=== PATIENT | female | born 1970 | race Caucasian/White ===

== ENCOUNTER 2017-09-21 19:07 | Emergency (ER) | payer MEDICAID ==
[2017-09-21] MEDS ORDERED: Lidocaine 1% with EPINEPHrine 1:100,000 20 ML MDV ONE (19:36)
[2017-09-21] MEDS ORDERED: Lidocaine 1% with EPINEPHrine 1:100,000 20 ML MDV INJECT ONE (19:46)
--- NOTE | 2017-09-21 20:03 | EDM.PDOC ---
ED HPI GENERAL MEDICAL PROBLEM - General Chief Complaint: General Stated Complaint: incision open Time Seen by Provider: 09/21/17 19:35 Source of Information: Reports: Patient History Limitations: Reports: No Limitations - History of Present Illness INITIAL COMMENTS - FREE TEXT/NARRATIVE: Patient presents with concerns of her abdominal incision that "popped open and it now bleeding". Patient had a laparoscope yesterday to remove her ovaries and her tubes. Was taking a shower this evening and drying off when felt the popping sensation. Did have a friend who is a nurse observe the open wound and did try steri strips but they wouldn't stick. She is having mild discomfort but not necessarily more than her post-surgical pain. Onset: Today, Sudden Duration: Hour(s): Location: Reports: Abdomen Quality: Reports: Dull Severity: Mild Associated Symptoms: Reports: No Other Symptoms Lower Back Pain Score (Numeric/FACES): 2 - Related Data Allergies Allergy/AdvReac Type Severity Reaction Status Date / Time morphine Allergy Hives Verified 09/21/17 19:13 Sulfa (Sulfonamide Allergy Hives Verified 09/21/17 19:13 Antibiotics) Home Meds: Home Meds ALPRAZolam [Alprazolam] 0.25 mg PO BEDTIME 09/21/17 [History] Acetaminophen/HYDROcodone [[place] 325-5 MG] 1 tab PO Q4H PRN 09/21/17 [History] Estradiol [Estradiol] 1 tab PO DAILY 09/21/17 [History] Venlafaxine HCl [Venlafaxine ER] 150 mg PO BEDTIME 09/21/17 [History] Past Medical History Gastrointestinal History: Reports: GERD, Irritable Bowel Syndrome, PUD, Other ( See Below) Other Gastrointestinal History: liver reflux Genitourinary History: Reports: None 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: Musculoskeletal History: Reports: Fracture, Neck Pain, Chronic Neurological History: Reports: Migraines Psychiatric History: Reports: Anxiety, Depression Hematologic History: Reports: Anemia Dermatologic History: Reports: Psoriasis - Past Surgical History GI Surgical History: Reports: Cholecystectomy, Colonoscopy, EGD Female Surgical History: Reports: Hysterectomy Neurological Surgical History: Reports: None Musculoskeletal Surgical History: Reports: ORIF Social & Family History - Family History Family Medical History: Noncontributory - Tobacco Use Smoking Status *Q: Former Smoker Used Tobacco, but Quit: Yes Month Tobacco Last Used: 13 yrs - Recreational Drug Use Recreational Drug Use: No ED ROS GENERAL - Review of Systems Review Of Systems: See Below Constitutional: Denies: Fever, Chills, Malaise, Decreased Appetite HEENT: Reports: No Symptoms Respiratory: Reports: No Symptoms Cardiovascular: Reports: No Symptoms Endocrine: Reports: No Symptoms GI/Abdominal: Reports: Abdominal Pain : Reports: No Symptoms Musculoskeletal: Reports: No Symptoms Skin: Reports: Other ( ) ED EXAM, GENERAL - Physical Exam Exam: See Below Exam Limited By: No Limitations General Appearance: Alert, WD/WN, No Apparent Distress GI/Abdominal: Normal Bowel Sounds, Soft, Tender Neurological: Alert, Oriented Skin Exam: Warm, Dry, Other (umbilical incision is now gaping open, approximately 2 cm by 1.5 cm open. Did opt to close wound for better healing with one suture. See procedure.) ED GENERAL MEDICAL PROCEDURES - Laceration/Wound Repair Abdomen Lac/wound length in cm: 2 Appearance: Linear Anesthetic Type: Local Local Anesthesia - Lidocaine (Xylocaine): 1% with EPI Local Anesthetic Volume: 2cc Skin Prep: Providone-Iodine (Betadine) Exploration/Debridement/Repair: Wound Explored (incision explored, tissue exposed but clean.) Closed with: Sutures (approximate the edges with one suture) # of Sutures: 1 Complications: No Course - Vital Signs Last Recorded V/S: Last Vital Signs Temp 98.1 F 09/21/17 19:10 Pulse 87 09/21/17 19:10 Resp 16 09/21/17 19:10 BP 120/81 09/21/17 19:10 Pulse Ox 96 09/21/17 19:10 - Orders/Labs/Meds Meds: Medications Discontinued Medications Generic Name Dose Route Start Last Admin Trade Name Chidi PRN Reason Stop Dose Admin Lidocaine/Epinephrine 20 ml 09/21/17 19:46 09/21/17 19:46 Xylocaine 1% With Epinephrine 1:100,000 INJECT 09/21/17 19:47 20 ml ONETIME ONE Administration Lidocaine/Epinephrine Confirm 09/21/17 19:36 09/21/17 19:56 Xylocaine 1% With Epinephrine 1:100,000 Administered 09/21/17 19:37 Not Given Dose 20 ml .ROUTE .STK-MED ONE Departure - Departure Time of Disposition: 20:00 Disposition: Home, Self-Care 01 Condition: Good Clinical Impression: Wound dehiscence - Discharge Information Referrals: Tamanna Iniguez PA [Emergency Provider] - Forms: ED Department Discharge Additional Instructions: 1. Keep wound clean and dry 2. Change bandage as needed 3. Have suture removed at SANITATION SUPERVISOR visit 4. Contact us with any questions
== END 2017-09-21 20:04 | disposition home or self-care (01) ==
LOC: CC.ED 19:07
DX: T81.31XA Disruption of external operation (surgical) wound, not elsewhere classified, initial encounter (principal); Z88.5 Allergy status to narcotic agent; Z88.2 Allergy status to sulfonamides; Z87.891 Personal history of nicotine dependence
CPT/HCPCS: 12001; 96372; 99282

== ENCOUNTER 2019-07-15 20:41 | Emergency (ER) | payer BC ==
[2019-07-15] MEDS ORDERED: Sodium Chloride 0.9% 1,000 ML IV ONE (21:02)
--- NOTE | 2019-07-15 21:03 | EDM.PDOC ---
ED HPI GENERAL MEDICAL PROBLEM - General Chief Complaint: General Stated Complaint: sweating,weakness Time Seen by Provider: 07/15/19 20:55 Source of Information: Reports: Patient History Limitations: Reports: No Limitations - History of Present Illness INITIAL COMMENTS - FREE TEXT/NARRATIVE: This patient is a 49 year old female that presents to the ER. 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 She reports towards the end of the evening, she took a bite of whip from a bowl. She reports shortly after doing that she felt lightheaded, diaphoretic, hot flushed, lower abdominal cramping like she had to have a BM. She reports that The patient reports that she has been getting migraines frequently, has chronic history of migraines. The patient denies n, v, d, f, chest pain, shortness of breath, urinary changes, unilateral weaknesses. Onset: Today Onset Date: 07/15/19 Onset Time: 20:00 Duration: Hour(s): (1) Location: Reports: Abdomen Quality: Reports: Other (cramping) Severity: Moderate Improves with: Reports: None Worsens with: Reports: None Associated Symptoms: Reports: Diaphoresis, Headaches. Denies: Confusion, Chest Pain, Cough, cough w sputum, Fever/Chills, Loss of Appetite, Malaise, Nausea/ Vomiting, Rash, Seizure, Shortness of Breath, Syncope, Weakness Lower Abdominal Pain Score (Numeric/FACES): 8 - Related Data Allergies Allergy/AdvReac Type Severity Reaction Status Date / Time morphine Allergy Hives Verified 07/15/19 20:43 Sulfa (Sulfonamide Allergy Hives Verified 07/15/19 20:43 Antibiotics) Home Meds: Home Meds 5Hydroxytryptophan(Oxitriptan) [5-Htp] 200 mg PO DAILY 07/15/19 [History] Estradiol 0.025 mg TOP DAILY 07/15/19 [History] Fluocinonide 1 applic TOP DAILY 07/15/19 [History] Multivit-Min/Iron/Folic/Zaw548 [Hair, Skin and Nails Tablet] 1 tab PO DAILY [History] Past Medical History Gastrointestinal History: Reports: GERD, Irritable Bowel Syndrome, PUD, Other ( See Below) Other Gastrointestinal History: liver reflux Genitourinary History: Reports: 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: Musculoskeletal History: Reports: Fracture, Neck Pain, Chronic Neurological History: Reports: Migraines Psychiatric History: Reports: Anxiety, Depression Hematologic History: Reports: Anemia Dermatologic History: Reports: Psoriasis - Past Surgical History GI Surgical History: Reports: Cholecystectomy, Colonoscopy, EGD Female Surgical History: Reports: Hysterectomy Neurological Surgical History: Reports: None Musculoskeletal Surgical History: Reports: ORIF Social & Family History - Family History Family Medical History: Noncontributory ED ROS GENERAL - Review of Systems Review Of Systems: See Below Constitutional: Reports: Diaphoresis. Denies: Fever HEENT: Reports: No Symptoms Respiratory: Reports: No Symptoms. Denies: Shortness of Breath Cardiovascular: Reports: Lightheadedness. Denies: Chest Pain, Blood Pressure Problem, Claudication, Dyspnea on Exertion, Edema, Orthopnea, Palpitations, Syncope Endocrine: Reports: No Symptoms GI/Abdominal: Reports: Abdominal Pain. Denies: Diarrhea, Nausea, Vomiting : Reports: No Symptoms Musculoskeletal: Reports: No Symptoms Skin: Reports: No Symptoms Neurological: Reports: Headache. Denies: Seizure, Syncope Psychiatric: Reports: No Symptoms Hematologic/Lymphatic: Reports: No Symptoms Immunologic: Reports: No Symptoms ED EXAM, GENERAL - Physical Exam Exam: See Below Exam Limited By: No Limitations General Appearance: Alert, WD/WN, No Apparent Distress, Anxious Eye Exam: Bilateral Eye: Normal Inspection, PERRL Ears: Normal External Exam, Normal Canal, Hearing Grossly Normal, Normal TMs Ear Exam: Bilateral Ear: Auricle Normal, Canal Normal, TM normal Nose: Normal Inspection, Normal Mucosa, No Blood Throat/Mouth: Normal Inspection, Normal Lips, Normal Teeth, Normal Gums, Normal Oropharynx, Normal Voice, No Airway Compromise Head: Atraumatic, Normocephalic Neck: Normal Inspection, Supple, Non-Tender, Full Range of Motion Respiratory/Chest: No Respiratory Distress, Lungs Clear, Normal Breath Sounds, No Accessory Muscle Use Cardiovascular: Normal Peripheral Pulses, Regular Rate, Rhythm, No Edema, No Gallop, No JVD, No Murmur, No Rub Peripheral Pulses: 2+: Carotid (L), Carotid (R), Radial (L), Radial (R), Posterior Tibial (L), Posterior Tibial (R) GI/Abdominal: Normal Bowel Sounds, Soft, No Organomegaly, No Distention, No Abnormal Bruit, No Mass, Pelvis Stable, Tender (mild RLQ, LLQ.). No: Distended , Guarding, Rigid, Rebound (Female) Exam: Deferred Rectal (Female) Exam: Deferred Back Exam: Normal Inspection, Full Range of Motion. No: CVA Tenderness (L), CVA Tenderness (R) Extremities: Normal Inspection, Normal Range of Motion, Non-Tender, No Pedal Edema, Normal Capillary Refill Neurological: Alert, Oriented, CN II-XII Intact, Normal Cognition, Normal Gait, No Motor/Sensory Deficits Psychiatric: Normal Affect, Normal Mood Skin Exam: Warm, Dry, Intact, Normal Color, No Rash Lymphatic: No Adenopathy EKG INTERPRETATION EKG Date: 07/15/19 Time: 21:32 Rhythm: NSR Rate (Beats/Min): 79 QRS: Normal ST-T: Other (nonspecific. no elevation) QT: Normal Comparison: NA - No Prior EKG Course - Vital Signs Last Recorded V/S: Last Vital Signs Temp 96.8 F 07/15/19 20:43 Pulse 96 07/15/19 20:43 Resp 18 07/15/19 20:43 BP 132/73 07/15/19 20:43 Pulse Ox 100 07/15/19 20:43 - Orders/Labs/Meds Orders: Active Orders 24 hr Category Date Time Status EKG Documentation Completion [RC] STAT Care 07/15/19 21:02 Inactive Abdomen Pelvis w Cont [CT] Stat Exams 07/15/19 21:50 Taken Labs: Laboratory Tests 07/15/19 07/15/19 07/15/19 Range/Units 21:25 21:25 21:52 WBC 11.6 H (5.0-10.0) 10^3/uL RBC 4.06 (4.00-5.50) 10^6/uL Hgb 11.9 L (12.0-16.0) g/dL Hct 36.4 L (37.0-47.0) % MCV 89.7 (82.0-94.0) fL MCH 29.3 (27.0-32.0) pg MCHC 32.7 L (33.0-38.0) g/dL RDW Coeff of Rayna 13.2 (11.0-15.0) % Plt Count 437 H (150-400) 10^3/uL Neut % (Auto) 59.0 (35-85) % Lymph % (Auto) 29.6 (10-55) % Isabella % (Auto) 9.7 (0-16) % Eos % (Auto) 0.8 (0-5) % Baso % (Auto) 0.9 (0-3) % Neut # (Auto) 6.87 (1.80-7.00) 10^3/uL Lymph # (Auto) 3.45 (1.00-4.80) 10^3/uL Isabella # (Auto) 1.13 H (0.00-0.80) 10^3/uL Eos # (Auto) 0.09 (0.00-0.45) 10^3/uL Baso # (Auto) 0.10 10^3/uL Sodium 143 (136-145) mEq/L Potassium 4.4 (3.5-5.0) mEq/L Chloride 105 (98-106) mEq/L Carbon Dioxide 31 (21-32) mmol/L BUN 14 (7-18) mg/dL Creatinine 1.2 H (0.6-1.0) mg/dL Est Cr Clr Drug Dosing 45.88 mL/min Estimated GFR (MDRD) 47 L (>=60) mL/min Glucose 107 H (75-99) mg/dL Calcium 9.6 (8.4-10.1) mg/dL Total Bilirubin 0.5 (0.0-1.0) mg/dL AST 22 (15-37) U/L ALT 27 (12-78) U/L Alkaline Phosphatase 87 (46-116) U/L Lactate Dehydrogenase 190 (100-190) U/L Creatine Kinase 135 (21-215) U/L Troponin I < 0.017 (0.00-0.06) ng/mL Total Protein 7.3 (6.4-8.2) g/dL Albumin 3.9 (3.4-5.0) g/dL Urine Color Yellow (YELLOW) Urine Appearance Clear (CLEAR) Urine pH 8.5 H (4.5-8.0) Ur Specific [place] 1.020 (1.003-1.020) Urine Protein 30 H (NEGATIVE) mg/dL Urine Glucose (UA) Negative (NEGATIVE) mg/dL Urine Ketones 15 H (NEGATIVE) mg/dL Urine Occult Blood Negative (NEGATIVE) Urine Nitrite Negative (NEGATIVE) Urine Bilirubin Negative (NEGATIVE) Urine Urobilinogen 0.2 (0.2-1.0) EU/dL Ur Leukocyte Esterase Negative (NEGATIVE) Urine RBC Not seen (0-5) /HPF Urine WBC 0-5 (0-5) /HPF Ur Squamous Epith Cells Few H (NOT SEEN) /HPF Amorphous Sediment Moderate H (NOT SEEN) /HPF Urine Bacteria Occasional H (NOT SEEN) /HPF Urine Mucus Few H (NOT SEEN) /HPF Meds: Medications Discontinued Medications Generic Name Dose Route Start Last Admin Trade Name Freq PRN Reason Stop Dose Admin Sodium Chloride 1,000 mls @ 1,000 mls/hr 07/15/19 21:02 07/15/19 21:21 Normal Saline IV 07/15/19 22:01 1,000 mls/hr .BOLUS ONE Administration Iopamidol 100 ml 07/15/19 21:53 07/15/19 22:09 Isovue-370 (76%) IVPUSH 07/15/19 21:54 100 ml ONETIME ONE Administration - Radiology Interpretation Free Text/Narrative:: CT ABD/Pelvis with contrast: Discussed with radiologist: Negative exam. CT Results Date: 07/15/19 CT Results Time: 23:05 - Re-Assessments/Exams Free Text/Narrative Re-Assessment/Exam: 07/15/19 21:52 Due to patient wbc elevation and abd pain with diaphoretic, will ct to r/o appendicitis. Departure - Departure Time of Disposition: 23:06 Disposition: Home, Self-Care 01 Condition: Fair Clinical Impression: Renal insufficiency - Discharge Information *PRESCRIPTION DRUG MONITORING PROGRAM REVIEWED*: Not Applicable *COPY OF PRESCRIPTION DRUG MONITORING REPORT IN PATIENT QUINCY: Not Applicable Instructions: Dehydration, Adult, [id number] Referrals: Tamanna Iniguez PA [Primary Care Provider] - Forms: ED Department Discharge Additional Instructions: Followup with your primary care provider Return to the ER for worsening of conditions or any emergent concerns Increase fluids Go home and rest - My Orders Last 24 Hours: My Active Orders 07/15/19 21:02 EKG Documentation Completion [RC] STAT 07/15/19 21:50 Abdomen Pelvis w Cont [CT] Stat - Assessment/Plan Last 24 Hours: My Active Orders 07/15/19 21:02 EKG Documentation Completion [RC] STAT 07/15/19 21:50 Abdomen Pelvis w Cont [CT] Stat Plan: PLEASE SEE RN NOTE FOR PFSH.
[2019-07-15 21:50] LABS: CHLORIDE,CL 105 mEq/L (98-106); SODIUM,NA 143 mEq/L (136-145)
[2019-07-15] MEDS ORDERED: Iopamidol 755 Mg/ML 100 ML Bottle IVPUSH ONE (21:53)
== END 2019-07-15 23:25 | disposition home or self-care (01) ==
LOC: CC.ED 20:41
DX: N28.9 Disorder of kidney and ureter, unspecified (principal); Z88.5 Allergy status to narcotic agent; Z88.2 Allergy status to sulfonamides
CPT/HCPCS: 36415; 74177; 80053; 81001; 82550; 83615; 84484; 85025; 93005; 96360; 99285-25; J7030; Q9967